=== PATIENT | male | born 1990 | race Caucasian/White ===

== ENCOUNTER 2016-04-21 23:19 | Emergency (ER) | payer BC ==
--- NOTE | ~2016-04-21 | HOLTER ---
Holter Monitor [facility] [address] [place]. [address] NAME: REBECCA FANG : 89 STATUS : DEP PAT#: [id number] AGE: 25 ADM/REG DATE : 04/22/16 MR#: [id number] REPORT SERV DATE: 04/25/16 DICTATED BY: DATE: REPORT STATUS : Draft TRANSCRIBED BY: MODL DATE: 04/25/16 HOLTER MONITOR REPORT RESPONSIBLE PROVIDER: ADAN Loo CHIEF COMPLAINT/REASON FOR STUDY: Palpitations and chest pain. REPORT QUALITY: RHYTHM: Rhythm was analyzed for 48 hours and 32 minutes. The underlying rhythm was sinus rhythm, which ranged from 48 to 124 beats per minute with average heart rate of 70 beats per minute. There were no pauses. VENTRICULAR ARRHYTHMIA: There was occasional ventricular ectopy, which consisted of PVCs. SUPRAVENTRICULAR ARRHYTHMIA: There was rare supraventricular ectopy, which consisted of PACs. SYMPTOMS: There were no symptoms reported during the monitoring. IMPRESSION: No evidence of pathologic cardiac arrhythmia. Please see attached worksheet for further details. Definitions for premature beat frequency Approximately Rare <100 <0.1 % Occasional 100-1500 0.1 - 1.5 % Frequent >1500 >1.5 % [facility] Daisha Nguyen M.D. / [id number]
[2016-04-22 01:45] LABS: BASOPHILS 0.4 %; BASOPHILS ABSOLUTE 0.03 10/3/uL (0.0-0.16); EOSINOPHILS 2.8 %; EOSINOPHILS ABSOLUTE 0.22 10/3/uL (0.0-0.53); ER CBC TAT 0 Hrs 13 Mins; HEMATOCRIT 47.4 % (40.0-51.0); HEMOGLOBIN 16.7 g/dL (13.6-17.8); IMMATURE GRANULOCYTES 0.1 %; IMMATURE GRANULOCYTES ABSOLUTE 0.01 10/3/uL (0.0-0.11); LYMPHOCYTES 28.7 %; LYMPHOCYTES ABSOLUTE 2.22 10/3/uL (0.67-4.30); MANUAL DIFF NO %; MEAN CORPUS HGB CONC 35.2 g/dL (32.0-36.0); MEAN CORPUSCULAR VOLUME 88.1 fL (80-100); MEAN PLATELET VOLUME 10.9 fL (9.2-13.0); MONOCYTES 8.4 %; MONOCYTES ABSOLUTE 0.65 10/3/uL (0.21-1.20); NEUTROPHILS 59.6 %; PLATELET COUNT 184 10/3/uL (150-400); RBC DISTRIBUTION WIDTH 12.5 % (12.0-16.0); RED CELL COUNT 5.38 10/6/uL (4.7-6.1); WHITE BLOOD CELLS 7.7 10/3/uL (4.5-10.5)
[2016-04-22 01:51] LABS: PARTIAL THROMBO TIME 26.7 SEC (22.5-37.2); PROTIME (NOT ORD) 12.7 SEC (12.0-14.5)
[2016-04-22 02:01] LABS: BUN (BLOOD UREA NITROGEN) 18 MG/DL (6-23); CALCIUM, SERUM 9.2 MG/DL (8.5-10.4); CHLORIDE, SERUM 105 MMOL/L (96-112); CO2 (CARBON DIOXIDE) 26 MMOL/L (24-34); SODIUM, SERUM 142 MMOL/L (135-148)
[2016-04-22 02:02] LABS: CHEST PAIN PROFILE TAT 0 Hrs 30 Mins; GLUCOSE, SERUM 106 MG/DL (60-99); TROPONIN I <0.02 NG/ML (<0.05)
[2016-04-22 02:04] LABS: CREATININE 0.95 MG/DL (0.70-1.30); GFR AFRICAN AMERICAN 130 ML/MIN (>=60); GFR NON AFRICAN AMERICAN 112 ML/MIN (>=60)
[2016-04-22 04:39] LABS: AMPHETAMINES (NOT ORD) NEG (NEG); BARBITURATES (NOT ORDERED NEG (NEG); BENZODIAZEPINES (NOT ORD) NEG (NEG); CANNABINOIDS (THC) NEG (NEG); COCAINE (NOT ORDERED) NEG (NEG); OPIATES NEG (NEG); PHENCYCLIDINE(PCP) NEG (NEG); TRICYCLICS NEG (NEG)
== END 2016-04-22 05:43 | disposition home or self-care (01) ==
LOC: ER 23:19
PROVIDERS: Emergency Medicine; Nurse Practitioner Acute Care
DX: R07.9 Chest pain, unspecified (principal); R00.2 Palpitations
CPT/HCPCS: 71020; 80048; 80305; 83735; 84484; 85025; 85379; 85610; 85730; 93005; 93225; 99285